=== PATIENT | male | born 1975 | race African-American/Black ===

== ENCOUNTER 2023-08-18 08:15 | Emergency (ER) | payer OTHER ==
[~2023-08-18] VITALS: Ht 195.6 cm; Wt 113.0 kg
[2023-08-18 08:23] VITALS: O2SAT 97
[2023-08-18] MEDS ORDERED: LIDOCAINE HCL/PF 1% 10 MG/ML 5ML VIAL INFIL ONE (10:15)
[2023-08-18] MEDS ORDERED: TETANUS, DIPHTHERIA, PERTUSSIS VAC/PF 0.5ML (>10YR OLD) IM ONE (10:15)
[2023-08-18] MEDS ORDERED: BACITRACIN ZINC OINT UDPKT TOP ONE (10:15)
[2023-08-18] MEDS ORDERED: BO1 TP (11:13)
[2023-08-18 11:40] VITALS: BP 124/83; PULSE 61; RESP 18; TEMP 97.8
== END 2023-08-18 11:43 | disposition home or self-care (01) ==
LOC: ER 08:15
DX: S61.212A Laceration without foreign body of right middle finger without damage to nail, initial encounter (principal); W26.9XXA Contact with unspecified sharp object(s), initial encounter; Y93.89 Activity, other specified; Y92.89 Other specified places as the place of occurrence of the external cause; Y99.8 Other external cause status
CPT/HCPCS: 90715; 12001; 90471; 99283; J3490; Z7610 ×3; C1893

== ENCOUNTER 2023-08-26 19:07 | Emergency (ER) | payer OTHER ==
[~2023-08-26] VITALS: Ht 195.6 cm; Wt 130.0 kg
[~2023-08-26 19:07] MED LIST: BO1 TP
[2023-08-26 19:53] VITALS: BP 117/78; PULSE 75; RESP 18; TEMP 98.2; O2SAT 98
[2023-08-26] MEDS ORDERED: NAPR500T7 PO (21:09)
[2023-08-26] MEDS ORDERED: SULF1TAB48 MT (21:09)
[2023-08-26] MEDS ORDERED: CEPH500T MT (21:09)
== END 2023-08-26 21:42 | disposition home or self-care (01) ==
LOC: ER 19:07
DX: S61.212D Laceration without foreign body of right middle finger without damage to nail, subsequent encounter (principal); Z90.49 Acquired absence of other specified parts of digestive tract; X58.XXXD Exposure to other specified factors, subsequent encounter
CPT/HCPCS: 99283

== ENCOUNTER 2023-08-31 17:05 | Emergency (ER) | payer OTHER ==
[~2023-08-31] VITALS: Ht 193 cm; Wt 104.0 kg
[~2023-08-31 17:05] MED LIST changes: +CEPH500T MT; +NAPR500T7 PO; +SULF1TAB48 MT
[2023-08-31 17:08] VITALS: O2SAT 98
[2023-08-31 17:44] VITALS: BP 130/76; PULSE 66; RESP 20; TEMP 98
== END 2023-08-31 17:45 | disposition home or self-care (01) ==
LOC: ER 17:05
DX: S61.411D Laceration without foreign body of right hand, subsequent encounter (principal); Z48.00 Encounter for change or removal of nonsurgical wound dressing; X58.XXXD Exposure to other specified factors, subsequent encounter
CPT/HCPCS: 99281; Z7610